=== PATIENT | female | born 1980 | race Caucasian/White ===

== ENCOUNTER 2018-04-30 07:18 | Emergency (ER) | payer OTHER ==
[~2018-04-30] VITALS: Ht 160 cm; Wt 58.9 kg
[2018-04-30 07:21] VITALS: BP 154/95; PULSE 117; RESP 18; Ht 160 cm; Wt 58.9 kg
--- NOTE | 2018-04-30 08:17 | ERD ---
ER Documentation Chief Complaint Chief Complaint chest pressure , palpitations , diarrhea , dizziness HPI Patient is a 37-year-old female with a history of panic attack who presents with heart racing. The symptoms started a few weeks ago after she had constipation. She thinks she also has high blood pressure. She said that she felt a squeezing and burning chest pain. She had nausea but no vomiting. She had dizziness. Upon review of old medical records this is the patient's first visit to the emergency department. Her primary doctor is Dr. Swan. ROS All systems reviewed and are negative except as per history of present illness. PMhx/Soc Hx Miscellaneous Medical Probl: Yes (htn ) Hx Alcohol Use: No Hx Substance Use: No Hx Tobacco Use: No Smoking Status: Never smoker FmHx Family History: No coronary disease Physical Exam Vitals Vital Signs Date Temp Pulse Resp B/P (MAP) Pulse Ox O2 O2 Flow FiO2 Time Delivery Rate 04/30/18 77 20 122/98 98 Room Air 08:15 (106) 04/30/18 98.1 117 18 154/95 100 07:21 (114) Physical Exam Const: No acute distress Head: Atraumatic Eyes: Normal Conjunctiva ENT: Normal External Ears, Nose and Mouth. Neck: Full range of motion. No meningismus. Resp: Clear to auscultation bilaterally Cardio: Regular rate and rhythm, no murmurs Abd: Soft, non tender, non distended. Normal bowel sounds Skin: No petechiae or rashes Back: No midline or flank tenderness Ext: No cyanosis, or edema Neur: Awake and alert Psych: Normal Mood and Affect Procedures/MDM EKG read by me: Rate/Rhythm: Regular rate and rhythm at a rate of 92 Intervals: Normal Impression: No evidence of ischemia or arrhythmia Chest x-ray negative per radiology. Patient is a 37-year-old female with no cardiac risk factors who presents with palpitations and chest pain. EKG and chest x-ray are negative. I do not believe the patient requires further workup or admission in the hospital at this time. I doubt acute coronary syndrome, pneumonia, pneumothorax, pulmonary embolism, or aortic dissection. The patient will be discharged but will need to follow-up closely with her primary doctor within 24-48 hours. She can return for any worsening symptoms. Departure Diagnosis: Primary Impression: Chest pain Chest pain type: unspecified Qualified Codes: R07.9 - Chest pain, unspecified Condition: Fair Patient Instructions: Chest Pain, Uncertain Cause Referrals: Dr. Swan Additional Instructions: Call your primary care doctor TOMORROW for an appointment during the next 1 WEEK.Tell the pathology secretary that you were referred from this facility.See the doctor sooner or return here if your condition worsens before your appointment time. WIL VALDEZ MD Apr 30, 2018 08:17
== END 2018-04-30 08:30 | disposition home or self-care (01) ==
LOC: E/R 07:18
DX: R07.9 Chest pain, unspecified (principal); I10 Essential (primary) hypertension
CPT/HCPCS: 71045; 93005; Z7502